=== PATIENT | male | born 1980 | race Caucasian/White ===

== ENCOUNTER 2017-06-15 07:55 | Emergency (ER) | payer MEDICAID ==
[~2017-06-15] VITALS: Ht 193 cm; Wt 90.7 kg
[~2017-06-15 07:55] MED LIST: AMLO10TA2 PO; LISI10TA5 PO; METO-304 PO; OXYC-133 PO
[2017-06-15] MEDS ORDERED: LABE200T PO (08:05)
--- NOTE | 2017-06-15 08:30 | NUR ---
Pt moved from room 3 to 4a due to lack of cont ekg monitor in room 3.
[2017-06-15] MEDS: ONDANSETRON IV *ER 4 MG/2 ML VIAL IV ONE (08:35)
[2017-06-15] MEDS: IV NS 1000 ML 1,000 ML IV ONE (08:35)
[2017-06-15 08:40] LABS: BASOPHILS # (AUTO) 0.5 K/uL (0.0-8.0); BASOPHILS % (AUTO) 2.4 % (0.0-2.0); EOSINOPHILS # (AUTO) 0.6 K/uL (0.0-0.7); EOSINOPHILS % (AUTO) 3.2 % (0.0-7.0); HEMOGLOBIN 15.9 G/DL (14.0-18.0); LYMPHOCYTES # (AUTO) 4.7 K/UL (0.8-4.8); LYMPHOCYTES % (AUTO) 23.5 % (20.5-51.5); MEAN CORPUSCULAR HEMOGLOBIN 28.7 UUG (27.0-31.0); MEAN CORPUSCULAR HGB CONC 33 g/dL (32.0-37.0); MEAN CORPUSCULAR VOLUME 86.7 FL (82.0-92.0); MONOCYTES # (AUTO) 1.5 K/UL (0.1-1.30); MONOCYTES % (AUTO) 7.3 % (0.0-11.0); NEUTROPHILS # (AUTO) 12.8 K/UL (1.8-8.9); NEUTROPHILS % (AUTO) 63.6 % (38.5-71.5); PLATELET COUNT (AUTO) 446 K/UL (150-450); RED BLOOD CELL COUNT(AUTO) 5.54 MIL/UL (4.7-6.1); WHITE BLOOD COUNT (AUTO) 20.1 K/UL (4.0-11.2)
[2017-06-15] MEDS: MORPHINE SULFATE 4 MG/1 ML DISP.SYRIN IV ONE ×2 (08:40→09:10)
[2017-06-15 08:42] LABS: CREATININE 1.1 mg/dL (0.6-1.3); POTASSIUM 4.1 mmol/L (3.5-5.1)
[2017-06-15] MEDS: PANTOPRAZOLE SODIUM 40 MG VIAL IV ONE (08:42)
[2017-06-15] MEDS ORDERED: ONDANSETRON 4 MG/2 ML VIAL ONE (08:43)
[2017-06-15] MEDS ORDERED: LABETALOL HCL 100 MG/20 ML VIAL ONE (08:43)
[2017-06-15] MEDS ORDERED: MORPHINE SULFATE 4 MG/1 ML DISP.SYRIN ONE ×2 (08:43→09:20)
[2017-06-15] MEDS ORDERED: PANTOPRAZOLE SODIUM 40 MG VIAL ONE (08:43)
[2017-06-15] MEDS: LABETALOL HCL 100 MG/20 ML VIAL IV ONE ×2 (08:45→13:10)
[2017-06-15 08:48] LABS: BILIRUBIN,TOTAL 0.5 mg/dL (0.2-1.0); TOTAL PROTEIN, SERUM 7.4 g/dL (6.4-8.2)
[2017-06-15] MEDS ORDERED: IOHEXOL 300MG/ML 100 ML INFUS..BTL ONE (08:53)
[2017-06-15] MEDS ORDERED: IV NORMAL SALINE 250 ML IV ONE (08:53)
--- NOTE | 2017-06-15 09:00 | NUR ---
Pt signed consent for CT abd/pelvis with IV contrast after speaking with .
[2017-06-15 09:02] LABS: *BILIRUBIN,URIN NEGATIVE (NEGATIVE); *BLOOD, URINE NEGATIVE (NEGATIVE); *CLARITY,URINE CLEAR (CLEAR); *COLOR,URINE YELLOW (YELLOW); *KETONES,URINE NEGATIVE (NEGATIVE); *PROTEIN,URINE NEGATIVE (NEGATIVE); *UROBILINOGEN,URINE 0.2 E.U./dl (NORMAL); LEUKOCYTE ESTERASE ,URINE NEGATIVE (NEGATIVE); NITRITE, URINE NEGATIVE (NEGATIVE); UGLUCOSE NEGATIVE (NEGATIVE)
--- NOTE | 2017-06-15 09:12 | NUR ---
Pt to CT via [facility].
[2017-06-15 09:37] LABS: BACTERIA,URINE NONE SEEN /HPF (NONE SEEN); RBC,URINE 0-3 /HPF (0-3); SQUAMOUS EPITHELIAL CELL,UR FEW /HPF (NONE SEEN); WBC,URINE 0-3 /HPF (0-3)
[2017-06-15 09:55] LABS: BAND % (MANUAL) 1 % (0-10); EOSINOPHILS % (MANUAL) 2 % (0-8); LYMPHOCYTES % (MANUAL) 19 % (20-40); METAMYELOCYTES % 1 % (0-1); MONOCYTES % (MANUAL) 11 % (2-10); NEUTROPHILS % (MANUAL) 66 % (42-75)
[2017-06-15] MEDS: HYDROMORPHONE 1 MG/1 ML DISP.SYRIN IV ONE ×2 (10:20→12:35)
[2017-06-15] MEDS ORDERED: HYDROMORPHONE 1 MG/1 ML DISP.SYRIN ONE ×2 (10:31→12:45)
[2017-06-15] MEDS: METRONIDAZOLE 500 MG/NS 100 ML PIGGYBACK IV ONE (10:40)
[2017-06-15] MEDS: IV NS 1000 ML 1,000 ML IV PRN (10:40)
[2017-06-15] MEDS ORDERED: METRONIDAZOLE 500 MG/NS 100ML 100 ML IV ONE (10:50)
[2017-06-15] MEDS: CIPROFLOXACIN IV 400 MG in PREMIXED 1 EACH IV ONE (11:42)
[2017-06-15 13:10] VITALS: BP 145/93
--- NOTE | 2017-06-15 13:16 | NUR ---
Patient does not wish to proceed with medical care recommended by . Patient given information related to possible complications, up to and including , which could occur as a result of leaving the hospital at this time. Patient verbalizes understanding of risks involved due to leaving against medical advice.
--- NOTE | 2017-06-15 13:17 | NUR ---
Diana sandoval in EDM - 06/15/17 at 1332 by LANEY Patient discharged to home in stable conditon. Written and verbal after care instructions given. Patient verbalizes understanding of instructions. Stressed follow up with pmd or return to ER for worsening s/s.
--- NOTE | 2017-06-15 13:17 | NUR ---
Written and verbal after care instructions given. Patient verbalizes understanding of instructions. Stressed follow up with pmd or return to ER for worsening s/s.
--- NOTE | 2017-06-15 13:17 | NUR ---
IV removed. Catheter intact and site benign. Pressure and 4x4 gauze applied to site. No bleeding noted.
== END 2017-06-15 13:34 | disposition left against medical advice (07) ==
LOC: ER 07:55
DX: K86.1 Other chronic pancreatitis (principal); R10.13 Epigastric pain; D72.828 Other elevated white blood cell count; K85.90 Acute pancreatitis without necrosis or infection, unspecified; I10 Essential (primary) hypertension; F41.9 Anxiety disorder, unspecified; F17.200 Nicotine dependence, unspecified, uncomplicated; F12.10 Cannabis abuse, uncomplicated
CPT/HCPCS: 36415; 70030-TC; 71010; 83690; 85025; 85610; 93005; A4663; C9113; J0744; J1170; J2270; J2405; J3490; J7030; J7050; Q9967

== ENCOUNTER 2017-06-28 04:06 | Emergency (ER) | payer MEDICAID ==
[~2017-06-28] VITALS: Ht 190.5 cm; Wt 90.7 kg
[~2017-06-28 04:06] MED LIST changes: +LABE200T PO; -METO-304 PO
[2017-06-28] MEDS ORDERED: HYDROMORPHONE 1 MG/1 ML DISP.SYRIN IV ONE ×2 (04:30→05:15)
[2017-06-28] MEDS ORDERED: ONDANSETRON 4 MG/2 ML VIAL IV ONE ×2 (04:30→05:15)
[2017-06-28] MEDS ORDERED: PANTOPRAZOLE SODIUM 40 MG VIAL IV ONE (04:30)
[2017-06-28] MEDS ORDERED: IV NORMAL SALINE 1000 ML BAG IV ONE ×2 (04:30→05:15)
--- NOTE | 2017-06-28 04:39 | NUR ---
Pt ambulated to room, changed into gown. Pt c/o severe upper abd pain with nausea. Pt has history of pancreatitis and multiple abd surgeries in the past. Pt seen by Dr. Ta. IV established, labs drawn and sent. Pt medicated for pain and nausea, will monitor for effects of medication. Fluid bolus infusing freely to gravity. Pt resting in position of comfort for self. Awaiting CT.
[2017-06-28] MEDS ORDERED: HYDROMORPHONE 1 MG/1 ML DISP.SYRIN ONE (04:41)
[2017-06-28] MEDS ORDERED: PANTOPRAZOLE SODIUM 40 MG VIAL ONE (04:42)
[2017-06-28] MEDS ORDERED: ONDANSETRON 4 MG/2 ML VIAL ONE ×2 (04:42→05:37)
[2017-06-28 04:43] LABS: POTASSIUM 3.6 mmol/L (3.5-5.1)
--- NOTE | 2017-06-28 04:45 | NUR ---
Pt to CT via w/c
[2017-06-28 04:48] LABS: BASOPHILS # (AUTO) 0.1 K/uL (0.0-8.0); BASOPHILS % (AUTO) 0.9 % (0.0-2.0); BILIRUBIN,DIRECT 0.1 mg/dL (0.0-0.2); BILIRUBIN,TOTAL 0.6 mg/dL (0.2-1.0); EOSINOPHILS # (AUTO) 0.5 K/uL (0.0-0.7); EOSINOPHILS % (AUTO) 3.2 % (0.0-7.0); HEMATOCRIT 49.4 % (40-50); LYMPHOCYTES # (AUTO) 3.8 K/UL (0.8-4.8); LYMPHOCYTES % (AUTO) 25.6 % (20.5-51.5); MEAN CORPUSCULAR HEMOGLOBIN 28.3 UUG (27.0-31.0); MEAN CORPUSCULAR HGB CONC 32 g/dL (32.0-37.0); MEAN CORPUSCULAR VOLUME 87.4 FL (82.0-92.0); MONOCYTES # (AUTO) 1.1 K/UL (0.1-1.30); MONOCYTES % (AUTO) 7.2 % (0.0-11.0); NEUTROPHILS # (AUTO) 9.4 K/UL (1.8-8.9); NEUTROPHILS % (AUTO) 63.1 % (38.5-71.5); PLATELET COUNT (AUTO) 468 K/UL (150-450); RED BLOOD CELL COUNT(AUTO) 5.65 MIL/UL (4.7-6.1); TOTAL PROTEIN, SERUM 7.8 g/dL (6.4-8.2); WHITE BLOOD COUNT (AUTO) 14.9 K/UL (4.0-11.2)
[2017-06-28 04:56] LABS: BAND % (MANUAL) 2 % (0-10); EOSINOPHILS % (MANUAL) 2 % (0-8); LYMPHOCYTES % (MANUAL) 24 % (20-40); MONOCYTES % (MANUAL) 9 % (2-10); NEUTROPHILS % (MANUAL) 63 % (42-75)
--- NOTE | 2017-06-28 05:01 | NUR ---
Pt returned from CT via w/c. Pt sts pain is slighly improved from medication. Pt resting in position of comfort for self.
--- NOTE | 2017-06-28 05:33 | NUR ---
Pt requesting more pain medication. MD notified and pt medicated, will monitor for effects of medication. Second liter bolus infusing freely to gravity. Pt resting in position of comfort for self.
[2017-06-28] MEDS ORDERED: HYDROMORPHONE 2 MG/1 ML DISP.SYRIN ONE (05:37)
[2017-06-28 05:56] LABS: *BILIRUBIN,URIN NEGATIVE (NEGATIVE); *BLOOD, URINE NEGATIVE (NEGATIVE); *CLARITY,URINE CLEAR (CLEAR); *COLOR,URINE YELLOW (YELLOW); *KETONES,URINE NEGATIVE (NEGATIVE); *PROTEIN,URINE NEGATIVE (NEGATIVE); *UROBILINOGEN,URINE 0.2 E.U./dl (NORMAL); LEUKOCYTE ESTERASE ,URINE TRACE (NEGATIVE); NITRITE, URINE NEGATIVE (NEGATIVE); UGLUCOSE NEGATIVE (NEGATIVE)
[2017-06-28 06:03] LABS: BACTERIA,URINE FEW /HPF (NONE SEEN); RBC,URINE 0-3 /HPF (0-3); SQUAMOUS EPITHELIAL CELL,UR FEW /HPF (NONE SEEN); URINE AMORPHOUS URATE FEW /HPF
--- NOTE | 2017-06-28 06:48 | NUR ---
Pt sts pain improved with previous medication. Pt stable for discharge per MD. IV dc'd, catheter intact, drsg applied, no problems noted to site. Pt given ACI. Pt verbalized understanding of dc instructions. Pt ambulated out of er with steady gait and ride home.
[2017-06-28 06:50] VITALS: BP 152/98
== END 2017-06-28 06:50 | disposition home or self-care (01) ==
LOC: ER 04:10
DX: K86.1 Other chronic pancreatitis (principal); Z90.81 Acquired absence of spleen; I10 Essential (primary) hypertension
CPT/HCPCS: 36415; 83690; 85025; 85730; A4663; C9113; J1170; J2405; J7030

== ENCOUNTER 2017-06-28 15:39 | Inpatient (IN) | payer MEDICAID ==
[~2017-06-28] VITALS: Ht 190.5 cm; Wt 90.7 kg
[2017-06-28] MEDS ORDERED: HYDROMORPHONE 1 MG/1 ML DISP.SYRIN IV ONE ×3 (16:00→17:15)
[2017-06-28] MEDS ORDERED: ONDANSETRON 4 MG/2 ML VIAL IV ONE ×2 (16:00→17:00)
--- NOTE | 2017-06-28 16:08 | NUR ---
PT IS IN ROOM #1B. DR BURNETT EVALUATED THE PT.
[2017-06-28 16:15] LABS: BASOPHILS # (AUTO) 0.4 K/uL (0.0-8.0); BASOPHILS % (AUTO) 1.7 % (0.0-2.0); EOSINOPHILS # (AUTO) 0.5 K/uL (0.0-0.7); EOSINOPHILS % (AUTO) 2.4 % (0.0-7.0); HEMATOCRIT 51.5 % (40-50); HEMOGLOBIN 16.8 G/DL (14.0-18.0); LYMPHOCYTES % (AUTO) 27.1 % (20.5-51.5); MEAN CORPUSCULAR HEMOGLOBIN 28.4 UUG (27.0-31.0); MEAN CORPUSCULAR HGB CONC 33 g/dL (32.0-37.0); MEAN CORPUSCULAR VOLUME 86.9 FL (82.0-92.0); MONOCYTES # (AUTO) 1.3 K/UL (0.1-1.30); MONOCYTES % (AUTO) 5.9 % (0.0-11.0); NEUTROPHILS # (AUTO) 13.8 K/UL (1.8-8.9); NEUTROPHILS % (AUTO) 62.9 % (38.5-71.5); RED BLOOD CELL COUNT(AUTO) 5.92 MIL/UL (4.7-6.1)
[2017-06-28] MEDS ORDERED: HYDROMORPHONE 1 MG/1 ML DISP.SYRIN ONE ×3 (16:16→22:21)
[2017-06-28] MEDS ORDERED: ONDANSETRON 4 MG/2 ML VIAL ONE ×2 (16:16→17:03)
[2017-06-28 16:18] LABS: POTASSIUM 3.6 mmol/L (3.5-5.1)
[2017-06-28 16:21] LABS: PLATELET COUNT (AUTO) 458 K/UL (150-450)
[2017-06-28] MEDS ORDERED: KETOROLAC TROMETHAMINE 30 MG INJ IVP ONE (16:30)
[2017-06-28] MEDS ORDERED: KETOROLAC TROMETHAMINE 30 MG INJ ONE (16:33)
[2017-06-28 16:45] LABS: BILIRUBIN,DIRECT 0.1 mg/dL (0.0-0.2); BILIRUBIN,TOTAL 0.7 mg/dL (0.2-1.0); TOTAL PROTEIN, SERUM 8.5 g/dL (6.4-8.2)
[2017-06-28] MEDS ORDERED: MEROPENEM 1,000 MG in IV NORMAL SALINE 250 ML IV ONE (16:45)
[2017-06-28 16:50] LABS: BAND % (MANUAL) 7 % (0-10); EOSINOPHILS % (MANUAL) 3 % (0-8); LYMPHOCYTES % (MANUAL) 25 % (20-40); MONOCYTES % (MANUAL) 9 % (2-10); NEUTROPHILS % (MANUAL) 56 % (42-75)
[2017-06-28] MEDS ORDERED: MEROPENEM 1 G VIAL IV ONE (17:10)
[2017-06-28] MEDS ORDERED: HYDROMORPHONE 2 MG/1 ML DISP.SYRIN ONE (17:29)
[2017-06-28] MEDS ORDERED: diphenhydrAMINE 50 MG/1 ML VIAL IV STA (17:51)
[2017-06-28] MEDS ORDERED: METOCLOPRAMIDE HCL 10 MG/2 ML VIAL IV STA (17:51)
--- NOTE | 2017-06-28 18:01 | NUR ---
REPORT WAS GIVEN TO OUTSIDE PHYSICAL DAMAGE APPRAISER. PT WAS TRANSFERED TO ROOM #218.
[2017-06-28] MEDS ORDERED: diphenhydrAMINE 50 MG/1 ML VIAL ONE (18:09)
[2017-06-28] MEDS ORDERED: METOCLOPRAMIDE HCL 10 MG/2 ML VIAL ONE (18:09)
[2017-06-28 18:10] VITALS: BP 167/118
[2017-06-28] MEDS ORDERED: IV D5 1/2 NS 1000 ML 1,000 ML IV PRN ×2 (18:30→19:15)
[2017-06-28] MEDS ORDERED: HYDROMORPHONE 2 MG/1 ML DISP.SYRIN IV PRN (18:30)
--- NOTE | 2017-06-28 18:34 | NUR ---
PATIENT ADMITTED FROM EMERGENCY ROOM. PATIENT REPORTEDLY CAME TO ER THIS MORNING AT 4 AM. ER DOCTOR WROTE PATIENT PRESCRIPTION FOR REGULARLY SCHEDULED PAIN MEDS BUT INSTRUCTED PATIENT TO RETURN IF HE CONTINUED TO THROW UP BLOOD. PATIENT RETURNED HOME AND PRESENTED AGAIN TO ER WITH REPORTS OF THROWING UP BLOOD. PATIENT DIAGNOSIS IS PANCREATITIS WITH NAUSEA AND VOMITING. PATIENT HAS HISTORY OF HYPERTENSION AND ANXIETY WITH MULTIPLE ABDOMINAL SURGERIES. PATIENT BP NOTED ELEVATED AT 173/121/, HR 136, RR 22, TEMP 98.4, OXYGENATION 99 % ON RA. PATIENT REPORTS HISTORY OF HEAVY ALCOHOL INGESTION. FIRST DIAGNOSED WITH PANCREATITIS 2 YEARS AGO BUT WAS ONLY ABLE TO CONTROL SYMPTOMS FOR A FEW WEEKS BEFORE ABDOMINAL PAIN AND BURNING IN STOMACH RETURNED.
--- NOTE | 2017-06-28 18:45 | NUR ---
Dr. Stephen is senior analytic consultant for Dr. Dobbins. paged for admitting orders.
[2017-06-28] MEDS ORDERED: PANTOPRAZOLE SODIUM 40 MG VIAL IV SCH (19:15)
[2017-06-28] MEDS ORDERED: NICOTINE 21 MG/24HR PATCH TD SCH (19:15)
[2017-06-28] MEDS ORDERED: HYDROMORPHONE 1 MG/1 ML DISP.SYRIN IV PRN (19:15)
--- NOTE | 2017-06-28 19:40 | NUR ---
PT RECEIVED IN BED, AWAKE. A/OX4. ABLE TO MAKE NEEDS KNOWN. BP ELEVATED. PT ANGRY AND YELLING. PT STATES, "I HAVE BEEN WAITING MORE THAN 45 MINUTES TO GET MEDICATIONS!" NO ACUTE DISTRESS NOTED. PT COMPLAINS OF 10/10 ABDOMINAL PAIN. WILL ADMINISTER PAIN MEDS ORDERED. SAFETY MEASURES IMPLEMENTED. CALL LIGHT WITHIN REACH.
[2017-06-28] MEDS ORDERED: ENALAPRILAT DIHYDRATE INJ 2.5 MG in IV NORMAL SALINE 50 ML IV PRN (19:45)
[2017-06-28] MEDS: ONDANSETRON 4 MG/2 ML VIAL IV PRN (20:03)
[2017-06-28 20:55] VITALS: BP 164/114
--- NOTE | 2017-06-28 21:00 | NUR ---
PT BP 164/114. PT REFUSED BP MEDICATION. PT STATES, "YOU GUYS ARE TRYING TO GET RID OF ME. I WILL NOT TAKE THE BLOOD PRESSURE MED UNTIL YOU GET ME HIGHER DOSE OF PAIN MED. MD NOTIFIED. AWAITING ORDERS.
--- NOTE | 2017-06-28 21:57 | NUR ---
PT COMPLAINS OF PAIN 09/04. OFFERED PT PAIN MEDICATION ORDERED. PT DECLINED. PT REMAINS AGITATED AND ANGRY.
--- NOTE | 2017-06-28 22:07 | NUR ---
PT REFUSED TELE. NOTIFIED.
[2017-06-28] MEDS: HYDROMORPHONE 1 MG/1 ML DISP.SYRIN IV PRN (22:15)
--- NOTE | 2017-06-28 22:16 | NUR ---
ADMINISTERED INCREASED DOSAGE OF PAIN MEDICATION ORDERED. OFFERED BP MEDICATION AGAIN. PT REFUSED. PT TEACHING ON RISKS AND BENEFITS OF BP MEDS. WILL CONT TO MONITOR.
[2017-06-29 00:06] VITALS: BP 156/110
[2017-06-29] MEDS: HYDROMORPHONE 1 MG/1 ML DISP.SYRIN IV PRN ×4 (02:05→08:15)
--- NOTE | 2017-06-29 02:05 | NUR ---
T REFUSED IV FLUIDS. PT STATES, "NOT RIGHT NOW BECAUSE I CANT SLEEP"
[2017-06-29] MEDS ORDERED: HYDROMORPHONE 1 MG/1 ML DISP.SYRIN ONE ×3 (02:07→06:11)
[2017-06-29 04:00] VITALS: BP 160/120
[2017-06-29] MEDS: FAMOTIDINE. 20 MG/2 ML VIAL IV SCH ×2 (04:07→08:26)
[2017-06-29 06:26] LABS: BASOPHILS # (AUTO) 0.1 K/uL (0.0-8.0); BASOPHILS % (AUTO) 0.7 % (0.0-2.0); EOSINOPHILS # (AUTO) 0.3 K/uL (0.0-0.7); EOSINOPHILS % (AUTO) 1.5 % (0.0-7.0); HEMATOCRIT 46.1 % (40-50); HEMOGLOBIN 15.8 G/DL (14.0-18.0); LYMPHOCYTES % (AUTO) 20.4 % (20.5-51.5); MEAN CORPUSCULAR HEMOGLOBIN 29.4 UUG (27.0-31.0); MEAN CORPUSCULAR HGB CONC 34 g/dL (32.0-37.0); MEAN CORPUSCULAR VOLUME 85.8 FL (82.0-92.0); MONOCYTES # (AUTO) 1.9 K/UL (0.1-1.30); MONOCYTES % (AUTO) 9.7 % (0.0-11.0); NEUTROPHILS # (AUTO) 13.2 K/UL (1.8-8.9); NEUTROPHILS % (AUTO) 67.7 % (38.5-71.5); PLATELET COUNT (AUTO) 428 K/UL (150-450); RED BLOOD CELL COUNT(AUTO) 5.37 MIL/UL (4.7-6.1); WHITE BLOOD COUNT (AUTO) 19.5 K/UL (4.0-11.2)
--- NOTE | 2017-06-29 06:49 | NUR ---
END OF SHIFT NOTES. PT ASLEEP INTERMITTENTLY THROUGHOUT SHIFT. PT BP ELEVATED. CONTINUE TO REFUSE BP MEDS. NO ACUTE DISTRESS NOTED. PT COMPLAINS OF 10/10 ABDOMINAL PAIN THROUGHOUT SHIFT. PAIN MEDICATION ADMINISTERED ORDERED. CONTINUED TO REFUSE IV FLUIDS. PT STATES "I NEED A ROGERS IF IM GONNA GET IV FLUID, I DONT WANT IT BECAUSE I CANT GET UP EVERY 5 SECONDS." PT CONTINUES TO REFUSE TELE MONITOR. NEEDS ATTENDED. SAFETY MAINTAINED. CALL LIGHT WITHIN REACH
[2017-06-29 07:30] LABS: CREATININE 0.9 mg/dL (0.6-1.3); POTASSIUM 3.5 mmol/L (3.5-5.1)
[2017-06-29 07:39] LABS: BAND % (MANUAL) 5 % (0-10); EOSINOPHILS % (MANUAL) 1 % (0-8); LYMPHOCYTES % (MANUAL) 19 % (20-40); MONOCYTES % (MANUAL) 10 % (2-10); NEUTROPHILS % (MANUAL) 65 % (42-75)
[2017-06-29] MEDS: LISINOPRIL 10 MG TABLET PO SCH (09:00)
[2017-06-29] MEDS ORDERED: KETOROLAC TROMETHAMINE 15 MG INJ IVP PRN (09:15)
[2017-06-29] MEDS: LABETALOL HCL 200 MG TABLET PO SCH ×3 (10:15→16:19)
[2017-06-29] MEDS ORDERED: HYDROMORPHONE 1 MG/1 ML DISP.SYRIN IV PRN (10:15)
[2017-06-29] MEDS: PANTOPRAZOLE SODIUM 40 MG VIAL IV SCH (10:15)
[2017-06-29] MEDS: AMLODIPINE 10 MG TABLET PO SCH (10:16)
[2017-06-29] MEDS: PIPERACILLIN/TAZOBACTAM/D5W 3.375 G in PREMIXED 1 EACH IV SCH ×3 (10:19→22:15)
[2017-06-29 11:17] VITALS: BP 183/127
--- NOTE | 2017-06-29 12:31 | NUR ---
DAILY NOTES REFUSES TELEMETRY AND IVF CARINA ALL OTHER TXS WELL
[2017-06-29] MEDS: HYDROMORPHONE 2 MG/1 ML DISP.SYRIN IV PRN ×4 (12:55→21:56)
[2017-06-29 15:08] VITALS: BP 143/97
[2017-06-29] MEDS: ONDANSETRON 4 MG/2 ML VIAL IV PRN ×2 (15:41→21:55)
--- NOTE | 2017-06-29 17:35 | NUR ---
Had been in contact with Ana from [facility] [ ; ] about the patient and they tried to transfer the patient to another hospital for GI consult. She stated that they have asked Dr. Plata to consult with the patient in [facility] but they are not certain if he will. JUN Garcia from [facility] [ ; ] called and stated that they should also have clinical reviews faxed to them. Faxed her the patient's reviews and informed her of [facility]'s plan. She stated that if the patient still needs to be transferred, we could try: [facility]IN [facility] - and [phone]/SW will follow-up.
--- NOTE | 2017-06-29 19:35 | NUR ---
PT RECEIVED IN BED, AWAKE. A/O X4. ABLE TO MAKE NEEDS KNOWN. VS STABLE. NO ACUTE DISTRESS NOTED. PT STATES PAIN IS CONTROLLED, AT 6/10 ON PAIN SCALE. CONTINUES TO REFUSE USE OF TELE MONITOR. WILL NOTIFY MD. CONTINUES TO REFUSE IVF. SAFETY MEASURES IMPLEMENTED. CALL LIGHT WITHIN REACH
[2017-06-29 20:00] VITALS: BP 122/81
--- NOTE | 2017-06-29 20:44 | NUR ---
PT ENCOURAGED TO USE IVF. PT CONTINUES TO REFUSE IVF USE.
[2017-06-30] MEDS: HYDROMORPHONE 2 MG/1 ML DISP.SYRIN IV PRN ×8 (00:55→22:17)
[2017-06-30] MEDS: ONDANSETRON 4 MG/2 ML VIAL IV PRN ×3 (00:55→06:53)
[2017-06-30] MEDS: PIPERACILLIN/TAZOBACTAM/D5W 3.375 G in PREMIXED 1 EACH IV SCH ×3 (05:20→21:31)
[2017-06-30 06:18] LABS: BASOPHILS # (AUTO) 0.1 K/uL (0.0-8.0); BASOPHILS % (AUTO) 0.7 % (0.0-2.0); EOSINOPHILS # (AUTO) 0.3 K/uL (0.0-0.7); HEMATOCRIT 45.5 % (40-50); HEMOGLOBIN 15.4 G/DL (14.0-18.0); LYMPHOCYTES % (AUTO) 25.6 % (20.5-51.5); MEAN CORPUSCULAR HEMOGLOBIN 29.4 UUG (27.0-31.0); MEAN CORPUSCULAR HGB CONC 34 g/dL (32.0-37.0); MEAN CORPUSCULAR VOLUME 86.9 FL (82.0-92.0); MONOCYTES # (AUTO) 1.9 K/UL (0.1-1.30); NEUTROPHILS # (AUTO) 9.3 K/UL (1.8-8.9); NEUTROPHILS % (AUTO) 59.7 % (38.5-71.5); PLATELET COUNT (AUTO) 431 K/UL (150-450); RED BLOOD CELL COUNT(AUTO) 5.23 MIL/UL (4.7-6.1); WHITE BLOOD COUNT (AUTO) 15.6 K/UL (4.0-11.2)
[2017-06-30 06:22] LABS: BILIRUBIN,TOTAL 1.1 mg/dL (0.2-1.0); CREATININE 1.3 mg/dL (0.6-1.3); POTASSIUM 3.5 mmol/L (3.5-5.1); TOTAL PROTEIN, SERUM 7.6 g/dL (6.4-8.2)
--- NOTE | 2017-06-30 06:31 | NUR ---
END OF SHIFT NOTES. SLEPT INTERMITTENTLY THROUGHOUT SHIFT. A/OX4. NEEDS ATTENDED. V/S STABLE. NO ACUTE DISTRESS NOTED. PAIN MANAGED THROUGHOUT SHIFT. CONT TO REFUSE IVF. SAFETY MAINTAINED. CALL LIGHT WITHIN REACH.
--- NOTE | 2017-06-30 07:00 | NUR ---
RECEIVED REPORT FROM ROOFER HELPER, PATIENT IN BED AWAKE, BED IN LOW POSITION, SIDE RAILS UPX2, NO EVIDENCE OF DISTRESS NOTED.
[2017-06-30 07:56] LABS: BAND % (MANUAL) 4 % (0-10); EOSINOPHILS % (MANUAL) 3 % (0-8); LYMPHOCYTES % (MANUAL) 23 % (20-40); MONOCYTES % (MANUAL) 11 % (2-10); NEUTROPHILS % (MANUAL) 59 % (42-75)
[2017-06-30] MEDS: LABETALOL HCL 200 MG TABLET PO SCH ×3 (09:00→16:11)
[2017-06-30] MEDS: AMLODIPINE 10 MG TABLET PO SCH (09:01)
[2017-06-30] MEDS: LISINOPRIL 10 MG TABLET PO SCH (09:01)
[2017-06-30] MEDS: PANTOPRAZOLE SODIUM 40 MG VIAL IV SCH (09:04)
[2017-06-30] MEDS: NICOTINE 21 MG/24HR PATCH TD SCH (09:04)
[2017-06-30 11:08] VITALS: BP 172/127
[2017-06-30 15:15] VITALS: BP 138/91
--- NOTE | 2017-06-30 18:48 | NUR ---
PATIENTS PAIN WAS CONTROLLED THROUGHOUT THE DAY, NO EVIDENCE OF DISTRESS NOTED, PATIENT AMBULATES TO BATHROOM AND OUTSIDE FOR SMOKING.
[2017-06-30 20:30] VITALS: BP 121/86
--- NOTE | 2017-06-30 21:45 | NUR ---
PT REQUESTED STOOL SOFTENER, C/O OF NOT HAVING A BOWEL MOVEMENT FOR [address] ROBLES FOR ORDERS.
--- NOTE | 2017-06-30 21:50 | NUR ---
DR. ROBLES CALLED FOR NEW ORDER DULCOLAX, READ BACK DONE AND NEW ORDER CARRIED OUT.
[2017-06-30] MEDS ORDERED: BISACODYL 5 MG TABLET.DR PO PRN (22:00)
[2017-06-30] MEDS ORDERED: BISACODYL 5 MG TABLET.DR PO ONE (23:30)
[2017-07-01] MEDS: HYDROMORPHONE 2 MG/1 ML DISP.SYRIN IV PRN ×8 (00:57→22:16)
[2017-07-01] MEDS: PIPERACILLIN/TAZOBACTAM/D5W 3.375 G in PREMIXED 1 EACH IV SCH ×3 (05:09→22:16)
[2017-07-01 05:35] VITALS: BP 125/82
--- NOTE | 2017-07-01 06:05 | NUR ---
PT SLEPT INTERMITTENTLY, IN NO ACUTE DISTRESS. PAIN MANAGEMENT ORDERED. IV ANTIBIOTICS ADMINISTERED ORDERED, NO ADVERSE REACTION NOTED. PT GETS OUT OF BED AND AMBULATES FREQUENTLY. DISCUSSED TO PATIENT REGARDING SAFETY MEASURES AND FALL RISK, PT VERBALIZED UNDERSTANDING. CALL LIGHT WITHIN REACH, BED IN LOW POSITION. WILL CONTINUE TO MONITOR.
[2017-07-01 06:43] LABS: BASOPHILS # (AUTO) 0.1 K/uL (0.0-8.0); BASOPHILS % (AUTO) 0.6 % (0.0-2.0); EOSINOPHILS # (AUTO) 0.3 K/uL (0.0-0.7); EOSINOPHILS % (AUTO) 2.4 % (0.0-7.0); HEMATOCRIT 44.9 % (40-50); LYMPHOCYTES # (AUTO) 4.2 K/UL (0.8-4.8); LYMPHOCYTES % (AUTO) 33.5 % (20.5-51.5); MEAN CORPUSCULAR HEMOGLOBIN 29.1 UUG (27.0-31.0); MEAN CORPUSCULAR HGB CONC 33 g/dL (32.0-37.0); MEAN CORPUSCULAR VOLUME 87.3 FL (82.0-92.0); MONOCYTES # (AUTO) 1.8 K/UL (0.1-1.30); MONOCYTES % (AUTO) 13.9 % (0.0-11.0); NEUTROPHILS # (AUTO) 6.3 K/UL (1.8-8.9); NEUTROPHILS % (AUTO) 49.6 % (38.5-71.5); PLATELET COUNT (AUTO) 398 K/UL (150-450); RED BLOOD CELL COUNT(AUTO) 5.14 MIL/UL (4.7-6.1); WHITE BLOOD COUNT (AUTO) 12.7 K/UL (4.0-11.2)
[2017-07-01 07:01] LABS: BILIRUBIN,TOTAL 0.8 mg/dL (0.2-1.0); CREATININE 1.3 mg/dL (0.6-1.3); POTASSIUM 3.3 mmol/L (3.5-5.1); TOTAL PROTEIN, SERUM 7.5 g/dL (6.4-8.2)
--- NOTE | 2017-07-01 07:20 | NUR ---
RECEIVED REPORT FROM FRAME WIRER NURSE, PATIENT IN BED, AWAKE, BED IN LOW POSITION, SIDE RAILS UPX2. NOC NURSE ADMINISTERED DULCOLAX, AND PATIENT HAD A SMALL BM THIS MORNING.
[2017-07-01] MEDS: PANTOPRAZOLE SODIUM 40 MG VIAL IV SCH (08:25)
[2017-07-01] MEDS: LISINOPRIL 10 MG TABLET PO SCH (08:26)
[2017-07-01] MEDS: LABETALOL HCL 200 MG TABLET PO SCH ×3 (08:26→17:05)
[2017-07-01] MEDS: AMLODIPINE 10 MG TABLET PO SCH (08:26)
[2017-07-01] MEDS: NICOTINE 21 MG/24HR PATCH TD SCH (08:27)
[2017-07-01] MEDS: NICOTINE 14 MG/24HR PATCH TD SCH (08:41)
[2017-07-01] MEDS ORDERED: POTASSIUM CHLORIDE 10 MEQ CAPSULE.SA PO ONE (09:00)
[2017-07-01 09:18] LABS: BAND % (MANUAL) 3 % (0-10); EOSINOPHILS % (MANUAL) 3 % (0-8); LYMPHOCYTES % (MANUAL) 32 % (20-40); MONOCYTES % (MANUAL) 13 % (2-10); NEUTROPHILS % (MANUAL) 49 % (42-75)
[2017-07-01 12:09] VITALS: BP 143/105
[2017-07-01] MEDS: ONDANSETRON 4 MG/2 ML VIAL IV PRN (12:14)
--- NOTE | 2017-07-01 13:45 | NUR ---
DR ROBLES SAW PATIENT, AND EXPLAINED THE NEED FOR A SURGICAL PROCEDURE THAT CANNOT BE PROVIDED HERE. PAIN MEDICATION ORDER FOR INCREASE REPEATED BACK TO CONFIRM 2MG DILAUDED Q3HPRN FOR SEVERE PAIN.
[2017-07-01 16:50] VITALS: BP 155/93
--- NOTE | 2017-07-01 17:47 | NUR ---
Patient experienced intermittent pain throughout the day, and one episode of emesis. Patient is currently calm, laying in bed, watching TV, and frequent ambulating through the hallway. Patient does not appear to be in any distress, no SOB, vitals are manageable.
--- NOTE | 2017-07-01 19:30 | NUR ---
RECEIVED PATIENT LAYING IN BED. NO ACUTE DISTRESS NOTED. A&OX'S 4. ABLE TO MAKE NEEDS KNOWN. AMBULATORY. PATIENT IS INCONTINENT ON DIAPER. PATIENT REFUSE FLUIDS. SKIN INTACT BESIDES OLD SCAR IN THE ABDOMINAL AREA. SAFETY INITIATED. CALL LIGHT WITHIN REACH. WILL CONTINUE TO MONITOR.
[2017-07-01 20:00] VITALS: BP 141/95
[2017-07-01] MEDS: ZOLPIDEM 5 MG TABLET PO PRN (23:54)
[2017-07-02] MEDS ORDERED: ZOLPIDEM 5 MG TABLET ONE (00:04)
[2017-07-02] MEDS: ONDANSETRON 4 MG/2 ML VIAL IV PRN ×5 (00:10→20:18)
[2017-07-02] MEDS: HYDROMORPHONE 2 MG/1 ML DISP.SYRIN IV PRN ×7 (01:19→22:01)
[2017-07-02 05:12] VITALS: BP 147/110
[2017-07-02] MEDS: PIPERACILLIN/TAZOBACTAM/D5W 3.375 G in PREMIXED 1 EACH IV SCH ×3 (05:28→22:01)
[2017-07-02] MEDS: PANTOPRAZOLE SODIUM 40 MG TABLET.DR PO SCH (06:17)
[2017-07-02] MEDS: AMLODIPINE 10 MG TABLET PO SCH (06:28)
--- NOTE | 2017-07-02 06:32 | NUR ---
PATIENT SLEPT INTERMITTENTLY T/O SHIFT. NO ACUTE DISTRESS NOTED. COMFORT AND SAFETY MAINTAINED T/O SHIFT. PATIENT IS AMBULATORY. WALKS AROUND THE UNIT WITH A CANE. FREQUENTLY ASKS FOR PAIN MED. MEDS GIVEN. STATED RELIEF. PATIENT REFUSED CONTINUOS FLUIDS. ALL NEEDS MET.
--- NOTE | 2017-07-02 06:37 | NUR ---
GAVE [facility]ASC BP MEDS EARLIER THAN SCHEDULED TIME BECAUSE BP WAS ELEVATED. CHECKED IT 3 TIMES 147/110. DISCUSSED WITH CHARGE NURSE OSWALD.
[2017-07-02 06:46] LABS: BASOPHILS # (AUTO) 0.1 K/uL (0.0-8.0); BASOPHILS % (AUTO) 0.7 % (0.0-2.0); EOSINOPHILS # (AUTO) 0.3 K/uL (0.0-0.7); EOSINOPHILS % (AUTO) 2.6 % (0.0-7.0); HEMOGLOBIN 14.6 G/DL (14.0-18.0); LYMPHOCYTES % (AUTO) 37.3 % (20.5-51.5); MEAN CORPUSCULAR HEMOGLOBIN 29.2 UUG (27.0-31.0); MEAN CORPUSCULAR HGB CONC 33 g/dL (32.0-37.0); MEAN CORPUSCULAR VOLUME 87.9 FL (82.0-92.0); MONOCYTES # (AUTO) 1.8 K/UL (0.1-1.30); MONOCYTES % (AUTO) 16.3 % (0.0-11.0); NEUTROPHILS # (AUTO) 4.5 K/UL (1.8-8.9); NEUTROPHILS % (AUTO) 43.1 % (38.5-71.5); PLATELET COUNT (AUTO) 425 K/UL (150-450); RED BLOOD CELL COUNT(AUTO) 5.01 MIL/UL (4.7-6.1); WHITE BLOOD COUNT (AUTO) 10.7 K/UL (4.0-11.2)
[2017-07-02 06:49] LABS: CREATININE 1.1 mg/dL (0.6-1.3); POTASSIUM 3.5 mmol/L (3.5-5.1)
[2017-07-02] MEDS: LISINOPRIL 10 MG TABLET PO SCH (09:17)
[2017-07-02] MEDS: NICOTINE 14 MG/24HR PATCH TD SCH (09:18)
[2017-07-02] MEDS: LABETALOL HCL 200 MG TABLET PO SCH ×3 (09:18→16:20)
[2017-07-02 09:24] LABS: EOSINOPHILS % (MANUAL) 3 % (0-8); LYMPHOCYTES % (MANUAL) 36 % (20-40); MONOCYTES % (MANUAL) 14 % (2-10); NEUTROPHILS % (MANUAL) 47 % (42-75)
[2017-07-02] MEDS ORDERED: POTASSIUM CHLORIDE 20 MEQ TAB.PRT.SR PO ONE (11:15)
[2017-07-02] MEDS ORDERED: LISINOPRIL 10 MG TABLET PO ONE (11:15)
[2017-07-02 12:32] VITALS: BP 110/74
[2017-07-02 15:24] VITALS: BP 140/100
--- NOTE | 2017-07-02 19:40 | NUR ---
PT RECEIVED IN BED, AWAKE. A/OX4. ABLE TO MAKE NEEDS KNOWN. V/S STABLE. NO ACUTE DISTRESS NOTED. NO COMPLAINTS OF PAIN AT THIS TIME. PT REFUSES TO KEEP IVF INFUSING. PT STATES, "I DO NOT WANT TO GET UP EVERY MINUTE. I WOULD NEED A ROGERS IF THEY WANT ME TO RUN IVF." SAFETY MEASURES IMPLEMENTED. CALL LIGHT WITHIN REACH.
--- NOTE | 2017-07-02 20:19 | NUR ---
MANUALLY ENTERED ZOFRAN. ACCIDENTLY PUT VIAL IN SHARPS CONTAINER BEFORE SCANNING.
[2017-07-02 20:35] VITALS: BP 152/94
[2017-07-02] MEDS: ZOLPIDEM 5 MG TABLET PO PRN (22:01)
[2017-07-03] MEDS: HYDROMORPHONE 2 MG/1 ML DISP.SYRIN IV PRN ×5 (00:58→12:58)
[2017-07-03] MEDS: ONDANSETRON 4 MG/2 ML VIAL IV PRN ×2 (01:50→11:05)
[2017-07-03 04:00] VITALS: BP 153/106
[2017-07-03] MEDS: PIPERACILLIN/TAZOBACTAM/D5W 3.375 G in PREMIXED 1 EACH IV SCH ×2 (05:28→13:00)
--- NOTE | 2017-07-03 05:30 | NUR ---
PT STATES HITTING HEAD ON RAILING IN BATHROOM. COMPLAINS OF PAIN AND HEADACHE. NURSE PRACTITIONER ERICKA MORGAN NOTIFIED. NURSE SALES REPRESENTATIVE CHURCH F[employer]ITURE ROSAS NOTIFIED.
[2017-07-03] MEDS ORDERED: ACETAMINOPHEN 325 MG TABLET PO ONE (06:00)
--- NOTE | 2017-07-03 06:07 | NUR ---
END OF SHIFT NOTES. PT SLEPT INTERMITTENTLY THROUGHOUT SHIFT. NO ACUTE DISTRESS NOTED. PAIN MEDICATIONS ADMINISTERED ORDERED. PT STATES, "I AM TOO TALL AND I HIT MY HEAD ON THE RAILING WHEN I GOT UP OFF THE TOILET. I HAVE A BUMP ON THE SIDE OF MY HEAD AND A HEADACHE." ICE PACK PROVIDED. TYLENOL ADMINISTERED ORDERED. SAFETY MAINTAINED. CALL LIGHT WITHIN REACH.
[2017-07-03] MEDS: PANTOPRAZOLE SODIUM 40 MG TABLET.DR PO SCH (06:18)
[2017-07-03 07:14] LABS: BASOPHILS # (AUTO) 0.1 K/uL (0.0-8.0); BASOPHILS % (AUTO) 0.8 % (0.0-2.0); EOSINOPHILS # (AUTO) 0.3 K/uL (0.0-0.7); EOSINOPHILS % (AUTO) 3.3 % (0.0-7.0); HEMATOCRIT 45.8 % (40-50); HEMOGLOBIN 15.1 G/DL (14.0-18.0); LYMPHOCYTES # (AUTO) 3.5 K/UL (0.8-4.8); MEAN CORPUSCULAR HGB CONC 33 g/dL (32.0-37.0); MEAN CORPUSCULAR VOLUME 87.8 FL (82.0-92.0); MONOCYTES # (AUTO) 1.3 K/UL (0.1-1.30); MONOCYTES % (AUTO) 14.1 % (0.0-11.0); NEUTROPHILS # (AUTO) 3.7 K/UL (1.8-8.9); NEUTROPHILS % (AUTO) 42.8 % (38.5-71.5); PLATELET COUNT (AUTO) 457 K/UL (150-450); RED BLOOD CELL COUNT(AUTO) 5.22 MIL/UL (4.7-6.1); WHITE BLOOD COUNT (AUTO) 8.9 K/UL (4.0-11.2)
[2017-07-03 07:31] LABS: BILIRUBIN,TOTAL 0.4 mg/dL (0.2-1.0); MAGNESIUM 1.9 mg/dL (1.8-2.4); POTASSIUM 3.7 mmol/L (3.5-5.1); TOTAL PROTEIN, SERUM 7.5 g/dL (6.4-8.2)
[2017-07-03] MEDS ORDERED: LISINOPRIL 10 MG TABLET PO SCH (09:00)
[2017-07-03] MEDS ORDERED: LISINOPRIL 20 MG TABLET PO SCH (09:00)
[2017-07-03] MEDS: LABETALOL HCL 200 MG TABLET PO SCH ×2 (09:11→12:57)
[2017-07-03] MEDS: NICOTINE 14 MG/24HR PATCH TD SCH (09:11)
[2017-07-03] MEDS: AMLODIPINE 10 MG TABLET PO SCH (09:12)
[2017-07-03 09:32] VITALS: BP 149/102
[2017-07-03 11:38] VITALS: BP 145/102
[2017-07-03 12:57] VITALS: BP 145/102
--- NOTE | 2017-07-03 13:17 | NUR ---
DCD instructions provided patient instructed to check himself to ER in [facility] as ordered by both Dr. Chace navarro and Dr. Plata who called earlier with instructions. Voucher provided to patient after finding out he can't get no ride to [facility].
--- NOTE | 2017-07-03 13:35 | NUR ---
At this time patient left room ambulatory with cane assistance refusing to wait for taxi voucher as he finally found a friend to give him a ride home will wait for him and drive him to ER [facility]. medicated for pain as requested.
--- NOTE | 2017-07-03 15:53 | NUR ---
UR Note Faxed DC clinicals today to [facility] JUN Leggett .
== END 2017-07-03 13:33 | disposition home or self-care (01) | DRG 720 ==
LOC: ER 15:39 → TELE 17:20 → MED 06-29 20:23
PROVIDERS: ADMIT Internal Medicine; ATTEND Internal Medicine
DX: A41.9 Sepsis, unspecified organism (principal); K86.3 Pseudocyst of pancreas; K85.22 Alcohol induced acute pancreatitis with infected necrosis; I10 Essential (primary) hypertension; D75.89 Other specified diseases of blood and blood-forming organs; F10.10 Alcohol abuse, uncomplicated; Z90.81 Acquired absence of spleen; G89.4 Chronic pain syndrome; K86.0 Alcohol-induced chronic pancreatitis; Y90.9 Presence of alcohol in blood, level not specified; F17.210 Nicotine dependence, cigarettes, uncomplicated; Z79.891 Long term (current) use of opiate analgesic; K86.1 Other chronic pancreatitis
CPT/HCPCS: 36415; 83605; 83690; 83735; 84100; 85025; A4663; C9113; J1170; J1885; J2185; J2405; J2543; J3490; J7030

== ENCOUNTER 2021-11-13 02:55 | Emergency (ER) | payer MEDICARE, OTHER ==
[~2021-11-13] VITALS: Ht 193 cm; Wt 102.1 kg
[~2021-11-13 02:55] MED LIST changes: -AMLO10TA2 PO; +AMLO10TA59 PO; -LABE200T PO; +LABE200T5 PO; +LISI10TA29 PO; -LISI10TA5 PO
--- NOTE | 2021-11-13 03:55 | NUR ---
Dr. Garcia in room for NARENDRA.
--- NOTE | 2021-11-13 03:56 | NUR ---
pt amb to room 2b c/o abd pain nv. pt denies cp or sob pt able to speak in complete sentences.
[2021-11-13] MEDS ORDERED: HYDROMORPHONE 1 MG/1 ML DISP.SYRIN IV ONE ×5 (04:00→10:15)
[2021-11-13] MEDS ORDERED: ONDANSETRON 4 MG/2 ML VIAL IV ONE (04:00)
[2021-11-13] MEDS ORDERED: IV NORMAL SALINE 1000 ML BAG IV ONE (04:00)
[2021-11-13] MEDS ORDERED: IV NORMAL SALINE 0 ML IV ONE (04:11)
[2021-11-13] MEDS ORDERED: IOHEXOL 300MG/ML 100 ML INFUS..BTL ONE (04:11)
[2021-11-13] MEDS ORDERED: SWABABLE VALVE TRANSFER SET EA MC ONE ×2 (04:11→04:31)
[2021-11-13] MEDS ORDERED: IV NORMAL SALINE 250 ML IV ONE (04:31)
[2021-11-13] MEDS ORDERED: ONDANSETRON 4 MG/2 ML VIAL ONE (04:35)
[2021-11-13] MEDS ORDERED: HYDROMORPHONE 2 MG/1 ML DISP.SYRIN ONE ×5 (04:35→10:13)
--- NOTE | 2021-11-13 04:42 | NUR ---
pt taken to cat scan.
--- NOTE | 2021-11-13 04:53 | NUR ---
pt returned from cat scan.
[2021-11-13 05:02] LABS: HEMATOCRIT 44.1 % (36.7-47.1); MEAN CORPUSCULAR HEMOGLOBIN 28.4 uug (23.8-33.4); MEAN CORPUSCULAR VOLUME 83.8 fL (73.0-96.2); PLATELET COUNT (AUTO) 585 K/uL (152-348)
[2021-11-13 05:13] LABS: CREATININE 0.8 mg/dL (0.6-1.3)
[2021-11-13 05:17] LABS: POTASSIUM 2.3 mmol/L (3.5-5.1)
[2021-11-13 05:19] LABS: BILIRUBIN,DIRECT 0.1 mg/dL (0.0-0.2); BILIRUBIN,TOTAL 0.7 mg/dL (0.2-1.0); TOTAL PROTEIN, SERUM 6.3 g/dL (6.4-8.2)
[2021-11-13] MEDS ORDERED: IV D5W-0.45% NS +20 KCL 1,000 ML IV ONE (05:30)
[2021-11-13] MEDS ORDERED: POTASSIUM CHLORIDE 20 MEQ TAB.PRT.SR PO ONE (05:30)
[2021-11-13] MEDS ORDERED: POTASSIUM CHLORIDE 20 MEQ TAB.PRT.SR ONE (05:32)
--- NOTE | 2021-11-13 07:56 | NUR ---
Pt still has pain after receiving 1mg injection. informed.
[2021-11-13] MEDS ORDERED: MAGNESIUM SULFATE/D5W 100 ML IV SCH (08:45)
[2021-11-13] MEDS ORDERED: MAGNESIUM SULFATE/D5W 100 ML ONE (10:55)
--- NOTE | 2021-11-13 12:13 | NUR ---
Pt stated he was tired of waiting in the hospital, signed out AMA. Removed IV intact, site okay, bandaged.
== END 2021-11-13 12:25 | disposition left against medical advice (07) ==
LOC: ER 03:06
DX: K85.90 Acute pancreatitis without necrosis or infection, unspecified (principal); K86.3 Pseudocyst of pancreas; E87.6 Hypokalemia; R19.7 Diarrhea, unspecified; R11.2 Nausea with vomiting, unspecified; K86.1 Other chronic pancreatitis; Z90.81 Acquired absence of spleen; F17.210 Nicotine dependence, cigarettes, uncomplicated; Z53.29 Procedure and treatment not carried out because of patient's decision for other reasons
CPT/HCPCS: 36415; 74177; 80048; 80076; 83690; 83735 ×2; 84132; 85025; 85730; 87426; 96361; 96365; 96375; 96376; 99285; 99406; J1170 ×5; J2405; J3475; Q9967; A4663; J7030; J7050

== ENCOUNTER 2021-11-15 03:43 | Inpatient (IN) | payer MEDICARE, OTHER ==
[~2021-11-15] VITALS: Ht 193 cm; Wt 102.1 kg
[2021-11-15] MEDS ORDERED: HYDROMORPHONE 1 MG/1 ML DISP.SYRIN IV ONE ×3 (04:45→07:45)
[2021-11-15] MEDS ORDERED: IV NS 1000 ML 1,000 ML IV ONE (04:45)
[2021-11-15] MEDS ORDERED: IV NORMAL SALINE 1000 ML BAG IV ONE (04:45)
[2021-11-15] MEDS ORDERED: PROCHLORPERAZINE EDISYLATE 10 MG/2 ML VIAL IV ONE (04:45)
[2021-11-15 05:03] LABS: HEMATOCRIT 43.4 % (36.7-47.1); MEAN CORPUSCULAR HEMOGLOBIN 28.7 uug (23.8-33.4); MEAN CORPUSCULAR VOLUME 84.6 fL (73.0-96.2); PLATELET COUNT (AUTO) 541 K/uL (152-348)
[2021-11-15] MEDS ORDERED: HYDROMORPHONE 2 MG/1 ML DISP.SYRIN ONE ×2 (05:13→05:49)
[2021-11-15 05:20] LABS: CARBON DIOXIDE 29 mmol/L (21-32); CHLORIDE 94 mmol/L (98-107); CREATININE 0.9 mg/dL (0.6-1.3); GLUCOSE 144 mg/dL (74-106); POTASSIUM 3.3 mmol/L (3.5-5.1); UREA NITROGEN, BLOOD 6 mg/dL (7-18)
[2021-11-15] MEDS ORDERED: PROCHLORPERAZINE EDISYLATE 10 MG/2 ML VIAL ONE (05:23)
[2021-11-15] MEDS ORDERED: POTASSIUM CHLORIDE 0 ML ONE (05:24)
[2021-11-15] MEDS: POTASSIUM CHLORIDE 50 ML IV SCH ×4 (05:25→10:55)
[2021-11-15 05:26] LABS: ALANINE AMINOTRANSFERASE 25 U/L (16-63); ALKALINE PHOSPHATASE 178 U/L (50-136); ASPARTATE AMINOTRANSFERASE 23 U/L (15-37); BILIRUBIN,DIRECT < 0.1 mg/dL (0.0-0.2); BILIRUBIN,TOTAL 0.5 mg/dL (0.2-1.0); TOTAL PROTEIN, SERUM 7.5 g/dL (6.4-8.2)
[2021-11-15 05:28] LABS: LIPASE 79 U/L (73-393)
[2021-11-15] MEDS ORDERED: MAGNESIUM SULFATE/D5W 100 ML ONE ×3 (05:48→08:57)
[2021-11-15] MEDS: MAGNESIUM SULFATE/D5W 100 ML IV SCH ×4 (05:48→10:54)
[2021-11-15] MEDS ORDERED: CLON0.1T PO (06:02)
[2021-11-15] MEDS ORDERED: HYDR25TA4 PO (06:02)
[2021-11-15] MEDS ORDERED: POTASSIUM CHLORIDE 50 ML ONE (07:31)
[2021-11-15] MEDS ORDERED: HYDROMORPHONE 1 MG/1 ML DISP.SYRIN ONE (07:56)
[2021-11-15 08:00] VITALS: BP 132/85
--- NOTE | 2021-11-15 08:40 | NUR ---
PT WAS EVALUATED BY DR HU . PT WAS TRANSFERED TO ROOM #329. REPORT WAS GIVEN TO M/S RN.
--- NOTE | 2021-11-15 09:45 | NUR ---
Admitted this 41 y/o male from ER with diagnosis of pancreatitis transferred via gurney. Patient is asleep easily arousable. He denies any pain or discomfort at this time. VS stable. Peripheral IV line on the right forearm intact and patent. Dr. Emmanuel made aware of admission.
[2021-11-15] MEDS ORDERED: ZOLPIDEM 5 MG TABLET PO PRN (10:15)
[2021-11-15] MEDS ORDERED: IV D5 1/2 NS 1000 ML 1,000 ML IV PRN (10:15)
[2021-11-15] MEDS ORDERED: ACETAMINOPHEN 325 MG TABLET PO PRN (10:15)
[2021-11-15] MEDS ORDERED: Z GUARD REMEDY PASTE 57 GM TUBE TOP PRN (10:15)
[2021-11-15] MEDS ORDERED: ONDANSETRON 4 MG/2 ML VIAL IV PRN (10:15)
[2021-11-15] MEDS ORDERED: MAGNESIUM HYDROXIDE 30 ML LIQUID UDC PO PRN (10:15)
[2021-11-15] MEDS: MORPHINE SULFATE 2 MG/1 ML DISP.SYRIN IV PRN ×4 (10:46→22:16)
[2021-11-15] MEDS: LABETALOL HCL 200 MG TABLET PO SCH ×2 (13:46→22:00)
[2021-11-15] MEDS: HYDROCODONE/APAP 5-325MG TABLET PO PRN ×2 (13:46→20:35)
[2021-11-15 16:02] VITALS: BP 166/84
[2021-11-15] MEDS: ALPRAZOLAM 0.25 MG TABLET PO PRN (16:20)
--- NOTE | 2021-11-15 20:20 | NUR ---
Received patient in bed, he is restless and complaining of ABD pain. He is very upset and is shouting at this RN. Explained to patient medication available to him for pain and sat up abruptly kicking his feet and slamming his hands on bed, he is shouting at this staff member. Offered [place] for breakthrough pain until morphine dose is due. He is in agreement and lays down in bed again. He is AAO x4. IV to right FA is patent and intact. Call light within reach. Remains NPO.
[2021-11-15 20:58] VITALS: BP 148/89
--- NOTE | 2021-11-15 22:40 | NUR ---
Patients fluids completely infused at this time. Patient refuses to start a new bag. States he just wants a break from the IV and would like to get some sleep. He becomes very upset and begins to yell after explanation of fluid needs. Will offer IV fluids later in shift again.
--- NOTE | 2021-11-16 00:15 | NUR ---
Offered IV to restart IV fluids at this time. Patient is still refusing fluids, states he is just now able to fall asleep. Refuses IV fluids multiple times.
[2021-11-16] MEDS: ALPRAZOLAM 0.25 MG TABLET PO PRN ×2 (00:19→09:36)
[2021-11-16] MEDS: MORPHINE SULFATE 2 MG/1 ML DISP.SYRIN IV PRN ×2 (02:14→06:11)
--- NOTE | 2021-11-16 02:15 | NUR ---
Patient continues to refuse IV fluids, he becomes agitated and begins to shout at this RN when offered IV fluids.
[2021-11-16] MEDS: HYDROCODONE/APAP 5-325MG TABLET PO PRN ×2 (04:15→09:18)
[2021-11-16 04:51] VITALS: BP 150/100
[2021-11-16] MEDS: LABETALOL HCL 200 MG TABLET PO SCH (06:10)
[2021-11-16] MEDS ORDERED: MORPHINE SULFATE 4 MG/1 ML DISP.SYRIN IV PRN (06:15)
[2021-11-16] MEDS ORDERED: MORPHINE SULFATE 4 MG/1 ML DISP.SYRIN ONE (06:17)
[2021-11-16 06:33] LABS: HEMATOCRIT 43.9 % (36.7-47.1); MEAN CORPUSCULAR HEMOGLOBIN 28.5 uug (23.8-33.4); PLATELET COUNT (AUTO) 491 K/uL (152-348)
[2021-11-16 06:35] LABS: NEUTROPHILS % (MANUAL) 0 % (42-75)
--- NOTE | 2021-11-16 06:48 | NUR ---
Patient is sleeping intermittently for remainder of the night. He is AAO x4. Continues to complain of severe pain 9-/10 to ABD, Morphine PRN provided as needed. Patient continues to refuse IV fluids. Is NPO except for meds. Right FA IV intact and patent.
[2021-11-16 06:58] LABS: CREATININE 0.9 mg/dL (0.6-1.3); MAGNESIUM 1.8 mg/dL (1.8-2.4); PHOSPHOROUS 3.4 mg/dL (2.5-4.9)
[2021-11-16 07:00] LABS: POTASSIUM 2.8 mmol/L (3.5-5.1)
[2021-11-16 07:46] VITALS: BP 156/96
[2021-11-16] MEDS ORDERED: POTASSIUM CHLORIDE 50 ML IV SCH (09:00)
[2021-11-16] MEDS ORDERED: PANTOPRAZOLE SODIUM 40 MG VIAL IV SCH (09:00)
[2021-11-16] MEDS ORDERED: CLONIDINE HCL 0.1 MG TABLET PO SCH (09:00)
[2021-11-16] MEDS ORDERED: AMLODIPINE 10 MG TABLET PO SCH (09:00)
[2021-11-16 09:25] VITALS: BP 164/101
--- NOTE | 2021-11-16 10:10 | NUR ---
Patient refused to continue with the IV potassium. Dr. Emmanuel in the unit, MD made aware of patient's refusal and current potassium level and MD ordered to shift IV potassium to PO. Pharmacy informed of MD's order.
[2021-11-16] MEDS ORDERED: POTASSIUM CHLORIDE 10 MEQ TAB.PRT.SR PO SCH (10:15)
--- NOTE | 2021-11-16 11:10 | NUR ---
Dr. Emmanuel saw and spoke to the patient. Per MD patient wants to leave AMA. Explained to the patient the risks of going home against medical advise but patient still wanted to leave. He signed AMA form and belongings well accounted for. Patient went home ambulatory, on room air , not in any form of distress.
== END 2021-11-16 11:30 | disposition left against medical advice (07) | DRG 439 ==
LOC: ER 03:47 → MEDSURG3 08:07
PROVIDERS: ADMIT Student in an Organized Health Care Education/Training Program; ATTEND Student in an Organized Health Care Education/Training Program
DX: K85.90 Acute pancreatitis without necrosis or infection, unspecified (principal); K86.3 Pseudocyst of pancreas; E87.1 Hypo-osmolality and hyponatremia; E44.1 Mild protein-calorie malnutrition; I82.891 Chronic embolism and thrombosis of other specified veins; E87.6 Hypokalemia; D75.839 Thrombocytosis, unspecified; E83.42 Hypomagnesemia; F17.210 Nicotine dependence, cigarettes, uncomplicated; I10 Essential (primary) hypertension; K80.20 Calculus of gallbladder without cholecystitis without obstruction; K86.1 Other chronic pancreatitis; K76.0 Fatty (change of) liver, not elsewhere classified; Z90.81 Acquired absence of spleen; Z68.27 Body mass index [BMI] 27.0-27.9, adult; Z20.822 Contact with and (suspected) exposure to COVID-19
CPT/HCPCS: 36415; 70030-TC; 83605; 83690; 83735; 84100; 84132; 85025; 85730; 93005; C9113; G0378; J0780; J1170; J2270; J3475; J3480; J3490; J7030; J7040